=== PATIENT | male | born 1980 | race Caucasian/White ===

== ENCOUNTER 2022-09-23 09:33 | Outpatient (CLI) | payer BC, SELFPAY | END 2022-09-23 09:34 | disposition home or self-care (01) | LOC: NFLDREF 09-24 10:58 | PROVIDERS: PCP Family Medicine; Referring Provider Family Medicine; Visit Provider Family Medicine | DX: Z00.00 Encounter for general adult medical examination without abnormal findings (principal); Z13.6 Encounter for screening for cardiovascular disorders; Z12.5 Encounter for screening for malignant neoplasm of prostate | CPT/HCPCS: 80048; 80061; 84153 ==

== ENCOUNTER 2023-12-10 08:08 | Outpatient (CLI) | payer BC, SELFPAY | END 2023-12-10 08:09 | disposition home or self-care (01) | LOC: NFLDREF 12-11 12:26 | PROVIDERS: PCP Family Medicine; Referring Provider Family Medicine; Visit Provider Family Medicine | DX: Z00.00 Encounter for general adult medical examination without abnormal findings (principal); Z13.1 Encounter for screening for diabetes mellitus; Z13.6 Encounter for screening for cardiovascular disorders; Z12.5 Encounter for screening for malignant neoplasm of prostate | CPT/HCPCS: 80048; 80061; G0103 ==

== ENCOUNTER 2025-01-26 08:40 | Outpatient (CLI) | payer BC, SELFPAY | END 2025-01-26 08:41 | disposition home or self-care (01) | LOC: NFLDREF 01-30 17:38 | PROVIDERS: PCP Family Medicine; Referring Provider Family Medicine; Visit Provider Family Medicine | DX: Z13.1 Encounter for screening for diabetes mellitus (principal); Z13.6 Encounter for screening for cardiovascular disorders | CPT/HCPCS: 80053; 80061 ==

== ENCOUNTER 2025-01-30 08:40 | Outpatient (CLI) | payer BC, SELFPAY | END 2025-01-30 08:41 | disposition home or self-care (01) | LOC: NFLDREF 02-07 18:49 | PROVIDERS: PCP Family Medicine; Referring Provider Family Medicine; Visit Provider Family Medicine | DX: R79.89 Other specified abnormal findings of blood chemistry (principal); Q53.10 Unspecified undescended testicle, unilateral | CPT/HCPCS: 84270; 84402; 84403 ==

== ENCOUNTER 2025-06-06 08:06 | Outpatient (CLI) | payer BC, SELFPAY | END 2025-06-06 08:07 | disposition home or self-care (01) | LOC: NFLDREF 06-12 04:43 | PROVIDERS: PCP Family Medicine; Referring Provider Family Medicine; Visit Provider Family Medicine | DX: R79.89 Other specified abnormal findings of blood chemistry (principal) | CPT/HCPCS: 80076 ==